=== PATIENT | male | born 2000 | race Hispanic/Latino ===

== ENCOUNTER 2023-09-05 17:29 | Emergency (ER) | payer OTHER ==
[~2023-09-05] VITALS: Ht 167.6 cm; Wt 59.0 kg
[2023-09-05] MEDS: LIDOCAINE HCL 1% 20 ML VIAL INJ SCH (18:30)
[2023-09-05] MEDS: IBUPROFEN 800 MG TAB PO ONE (19:22)
[2023-09-05] MEDS: NEOMY SULF/BACITRA/POLYMYXIN B 1 EACH PACKET TP ONE (19:22)
[2023-09-05] MEDS: TETANUS/DIPHTHERIA TOXOID [ADULT] 0.5 ML VIAL IM ONE (19:24)
[2023-09-05] MEDS ORDERED: IBUP-2070 PO (19:42)
== END 2023-09-05 20:05 | disposition home or self-care (01) ==
LOC: EDH 17:29
DX: S51.812A Laceration without foreign body of left forearm, initial encounter (principal); J45.909 Unspecified asthma, uncomplicated; X58.XXXA Exposure to other specified factors, initial encounter; Y93.89 Activity, other specified; Y92.89 Other specified places as the place of occurrence of the external cause; Y99.8 Other external cause status
CPT/HCPCS: 12004; 90471; 90714